=== PATIENT | female | born 1960 | race Caucasian/White ===

== ENCOUNTER 2024-04-06 20:05 | Inpatient (IN) ==
[2024-04-06 21:52] LABS: Sodium 110 mmol/L (135-145)
[2024-04-06 21:53] LABS: ALT 113 U/L (7-52); Albumin 4.4 g/dL (3.2-5.2); Albumin/Globulin Ratio 1.4 (1-3); Alkaline Phosphatase 130 U/L (35-149); Anion Gap 27 mmol/L (2-16); Blood Urea Nitrogen 9 mg/dL (6-24); CO2 Carbon Dioxide 15 mmol/L (22-32); Calcium 8.5 mg/dL (8.6-10.3); Chloride 68 mmol/L (101-111); Creatinine, Serum 0.69 mg/dL (0.51-0.95); Globulin 3.2 g/dL (2-4); Glucose 67 mg/dL (70-100); Total Bilirubin 3.2 mg/dL (0.2-1.0); Total Protein 7.6 g/dL (6.4-8.9); eGFR CKD-EPI 96.9 (>60)
[2024-04-06 21:54] LABS: Alcohol, S 249 mg/dL (<13)
[2024-04-06 22:01] LABS: ABS Eosinophils 0.1 10^3/uL (0.0-0.5); ABS Lymphocytes 1.1 10^3/uL (1.0-4.8); ABS Monocytes 0.6 10^3/uL (0.0-0.9); Eosinophil % 1.3 %; Hematocrit 38.4 % (35-45); Hemoglobin 13.5 g/dL (11.5-14.3); Lymphocyte % 14.1 %; Mean Corpuscular Hemoglobin 33.5 pg (27-33); Mean Corpuscular Hgb Conc 35.1 g/dL (31-36); Mean Corpuscular Volume 95.5 fL (80-97); Mean Platelet Volume 8.1 fL (7.5-11.2); Nucleated Red Blood Cells % 0.1 %/100WBC (0.0-0.8); Platelet Count 151 10^3/uL (150-450); Red Blood Count 4.01 10^6/uL (3.63-4.92); Red Cell Distribution Width 14.6 % (12-17); White Blood Count 7.8 10^3/uL (3.8-11.8)
[2024-04-06] MEDS: Ondansetron 4 mg VIAL 2 MG/ML 2 ml VIAL IV ONE (23:47)
[2024-04-07] MEDS: Enoxaparin 40 MG/0.4 ML SYR SUBCUT SCH (00:37)
[2024-04-07] MEDS: Dextrose 50% Syringe 50 ml 25 GM/50 ML SYRINGE ONE (00:37)
[2024-04-07] MEDS: Ondansetron 4 mg VIAL 2 MG/ML 2 ml VIAL IV PRN (00:41)
[2024-04-07] MEDS: Dextrose 50% Syringe 50 ml 25 GM/50 ML SYRINGE IV PUSH PRN (01:10)
[2024-04-07] MEDS ORDERED: Dextrose 50% Syringe 50 ml 25 GM/50 ML SYRINGE IV PUSH PRN ×2 (01:41→11:44)
[2024-04-07 03:03] LABS: Urine Appearance Clear; Urine Bilirubin Negative (Negative); Urine Blood Trace (Negative); Urine Color Light-Yellow; Urine Glucose 3+ (>=300 mg/dL) (Negative); Urine Ketones 2+ (Negative); Urine Nitrite Negative (Negative); Urine Protein Negative (Negative); Urine Specific Gravity 1.007 (1.002-1.030); Urine Urobilinogen Negative (Negative); Urine pH 5.5 (5.0-8.0)
[2024-04-07 03:05] LABS: Urine Osmo 234 mOsm/kg (150-1150)
[2024-04-07 03:08] LABS: Calcium 7.9 mg/dL (8.6-10.3); Creatinine, Serum 0.76 mg/dL (0.51-0.95); Potassium 3.4 mmol/L (3.5-5.0); eGFR CKD-EPI 87.4 (>60)
[2024-04-07] MEDS: NS 0.9% 1000 ml BAG 1,000 ML IV ONE (03:24)
[2024-04-07 03:38] LABS: TSH Ultra Thyroid Stim Horm 4.56 mcIU/mL (0.34-5.60)
[2024-04-07 03:40] LABS: Osmolality Serum 279 mOsm/kg (275-295)
[2024-04-07 03:40] LABS: ABS Monocytes 0.6 10^3/uL (0.0-0.9); ABS Neutrophils 5.1 10^3/uL (1.5-7.6); ABS Nucleated RBC 0.01 10^3/ul; Eosinophil % 0.7 %; Hematocrit 32.9 % (35-45); Hemoglobin 11.6 g/dL (11.5-14.3); Lymphocyte % 14.7 %; Mean Corpuscular Hemoglobin 32.8 pg (27-33); Mean Corpuscular Hgb Conc 35.2 g/dL (31-36); Mean Corpuscular Volume 93.2 fL (80-97); Nucleated Red Blood Cells % 0.1 %/100WBC (0.0-0.8); Platelet Count 137 10^3/uL (150-450); Red Blood Count 3.53 10^6/uL (3.63-4.92); Red Cell Distribution Width 14.6 % (12-17); White Blood Count 6.7 10^3/uL (3.8-11.8)
[2024-04-07] MEDS: cefTRIAXone 1 gm/50 mL D5W 1 GM/50 ML BAG IV SCH (03:41)
[2024-04-07] MEDS ORDERED: Lorazepam PYXIS KEY PRN (03:45)
[2024-04-07] MEDS: Al Hydrox/Mg Hydrox/Simet LIQ 30 ML UDC PO ONE (03:48)
[2024-04-07] MEDS: Metoclopramide 5 MG/ML VIAL (10 mg) IV PRN (03:49)
[2024-04-07 04:02] LABS: Lipase 45 U/L (11.0-82.0)
[2024-04-07] MEDS: LORazepam 2 mg VIAL 1 ml IV PUSH PRN (04:04)
[2024-04-07] MEDS: Magnesium Sulfate IV 1GM/100ML 1 GM/100 ML BAG IV ONE ×2 (04:09→07:56)
[2024-04-07 04:18] LABS: Magnesium 1.2 mg/dL (1.9-2.7)
[2024-04-07] MEDS ORDERED: Thiamine 100 MG/ML 2 ml VIAL (200 mg) IV ONE (04:20)
[2024-04-07 04:48] LABS: Phosphorus 1.7 mg/dL (2.5-5.0)
[2024-04-07 05:05] LABS: Venous Bicarbonate HCO3 23.2 mmol/L (24-28)
[2024-04-07 05:53] LABS: Albumin 3.8 g/dL (3.2-5.2); Albumin/Globulin Ratio 1.4 (1-3); Calcium 7.7 mg/dL (8.6-10.3); Creatinine, Serum 0.7 mg/dL (0.51-0.95); Globulin 2.7 g/dL (2-4); Magnesium 1.6 mg/dL (1.9-2.7); Potassium 3.6 mmol/L (3.5-5.0); Total Bilirubin 2.2 mg/dL (0.2-1.0); Total Protein 6.5 g/dL (6.4-8.9); eGFR CKD-EPI 96.5 (>60)
[2024-04-07] MEDS: Magnesium Sulfate 2 gm BAG 2 GM/50 ML BAG IVPB ONE ×2 (05:53→07:57)
[2024-04-07] MEDS: Thiamine IV 100 MG in NS 0.9% 50 ML IV ONE (05:55)
[2024-04-07] MEDS: NS 0.9% 1000 ml BAG 1,000 ML IV SCH (07:45)
[2024-04-07] MEDS: Potassium & Sodium Phos 250 mg = 1 PACKET PO ONE (07:56)
[2024-04-07] MEDS: Lactated Ringers 1000 ml BAG 1,000 ML IV SCH (07:56)
[2024-04-07] MEDS: D5LR 1000 ml BAG 1,000 ML IV SCH (10:57)
[2024-04-07 11:05] LABS: Calcium 7.4 mg/dL (8.6-10.3); Creatinine, Serum 0.71 mg/dL (0.51-0.95); Potassium 3.3 mmol/L (3.5-5.0); eGFR CKD-EPI 94.9 (>60)
[2024-04-07] MEDS: Potassium Chloride LIQUID 20 MEQ/15 ML LIQUID PO ONE (18:22)
[2024-04-08 05:01] LABS: Urine Appearance Clear; Urine Bilirubin Negative (Negative); Urine Blood Negative (Negative); Urine Color Light-Yellow; Urine Glucose Negative (Negative); Urine Ketones Trace (Negative); Urine Nitrite Negative (Negative); Urine Protein Negative (Negative); Urine Specific Gravity 1.005 (1.002-1.030); Urine Urobilinogen Negative (Negative)
[2024-04-08 05:53] LABS: Hemoglobin 11.2 g/dL (11.5-14.3); Mean Corpuscular Hemoglobin 33.2 pg (27-33); Mean Corpuscular Hgb Conc 36.1 g/dL (31-36); Mean Platelet Volume 7.8 fL (7.5-11.2); Platelet Count 93 10^3/uL (150-450); Red Blood Count 3.37 10^6/uL (3.63-4.92); White Blood Count 4.5 10^3/uL (3.8-11.8)
[2024-04-08 06:01] LABS: Albumin 3.7 g/dL (3.2-5.2); Albumin/Globulin Ratio 1.4 (1-3); Calcium 8.2 mg/dL (8.6-10.3); Creatinine, Serum 0.69 mg/dL (0.51-0.95); Globulin 2.6 g/dL (2-4); Potassium 4.1 mmol/L (3.5-5.0); Total Bilirubin 2.4 mg/dL (0.2-1.0); Total Protein 6.3 g/dL (6.4-8.9); eGFR CKD-EPI 96.9 (>60)
[2024-04-08 12:27] VITALS: BP 114/59
== END 2024-04-08 13:30 | disposition home or self-care (01) | DRG 641 ==
LOC: ED 20:05 → EDHOLD 23:15 → ICU 23:56
PROVIDERS: ADMIT Student in an Organized Health Care Education/Training Program; ATTEND Student in an Organized Health Care Education/Training Program